=== PATIENT | female | born 1990 | race Caucasian/White ===

== ENCOUNTER 2017-04-25 21:42 | Emergency (ER) | payer OTHER ==
[~2017-04-25 21:42] MED LIST: ALBUTEROL SULF8.5 GM IH; ALBUTEROL17 GM; ALBUTEROL17 GM INH; BACTRIM DS1 TA1 PO; BACTROBAN22 GM TP; BCP; BIRTH CONTROL; CIPRO500 M2 PO; CYCLOBENZAPRINE5 M1 PO; KEFLEX500 M4 PO; NAPROSYN500 M1 PO; NO MEDICATIONS; NORCO 5-325 TA1 EACH PO; NORCO 5/325 TAB1 TAB PO; PERCOCET 5-3251 EACH PO; PERCOCET PO; PHENERGAN50 MG/SUPP; PRENATAL 19 TA1 EAC1 PO; PRENATAL DHA PO; PROMETHAZINE; TYLENOL W/CODEI1 TA PO; TYLENOL W/CODEI1 TAB PO; ULTRAM50 M1 PO; ZITHROMAX250 MG PO; ZOFRAN ODT8 MG PO; ZOFRAN4 M2 PO; ZOFRAN4 MG PO
[2017-04-25] MEDS ORDERED: NECON 0.5-35-21 EACH PO (22:19)
[2017-04-25] MEDS ORDERED: LITHIUM CA300 MG/TAB PO (22:20)
[2017-04-25] MEDS ORDERED: ZOLOFT100 M1 PO (22:20)
== END 2017-04-25 23:25 ==
LOC: EDMED 21:42
DX: S93.401A Sprain of unspecified ligament of right ankle, initial encounter (principal); F17.210 Nicotine dependence, cigarettes, uncomplicated; Z79.899 Other long term (current) drug therapy; Z91.040 Latex allergy status; Z88.1 Allergy status to other antibiotic agents; X50.1XXA Overexertion from prolonged static or awkward postures, initial encounter; Y92.009 Unspecified place in unspecified non-institutional (private) residence as the place of occurrence of the external cause
CPT/HCPCS: J2270